=== PATIENT | female | born 1990 | race Native Hawaiian/Other Pacific Islander ===

== ENCOUNTER 2017-07-25 09:29 | Emergency (ER) | payer SELFPAY ==
[~2017-07-25] VITALS: Ht 162.6 cm; Wt 58.1 kg
[2017-07-25] MEDS ORDERED: ACYCLOVIR 400 MG TABLET PO ONE (09:58)
[2017-07-25] MEDS ORDERED: predniSONE 20 MG TABLET PO ONE (10:00)
[2017-07-25] MEDS ORDERED: ACYCLOVIR 200 MG CAPSULE ONE (10:08)
[2017-07-25] MEDS ORDERED: predniSONE 20 MG TABLET ONE (10:09)
[2017-07-25 11:16] LABS: *URINE HCG, QUAL NEGATIVE (NEGATIVE)
--- NOTE | 2017-07-25 11:30 | NUR ---
PT WAS EVALUATED BY DR HOPPER.
--- NOTE | 2017-07-25 12:02 | NUR ---
Pend D/C home, pt will be waiting in ER waiting room for [facility].
[2017-07-25 12:44] VITALS: BP 128/76
== END 2017-07-25 12:46 | disposition home or self-care (01) ==
LOC: ER 09:29
DX: G51.0 Bell's palsy (principal)
CPT/HCPCS: 71045; 84703; 93005; 99285; A4663; J7512